=== PATIENT | male | born 1995 | race African-American/Black ===

== ENCOUNTER → 2016-06-25 | Outpatient (CLI) | payer OTHER ==
--- NOTE | 2016-06-25 13:23 | KCIC ---
Ultrasound abdomen complete Indication: Splenomegaly. No prior studies are available for comparison. The liver is normal in size at 13.4 centimeters. No discrete liver mass is detected. The gallbladder is without stones or sludge. No wall thickening or pericholecystic fluid is identified. No biliary ductal dilatation is seen. The pancreas, aorta and IVC are poorly visualized due to overlying bowel gas. The kidneys are unremarkable. No calculi or hydronephrosis is detected. The spleen is enlarged at 15.2 centimeters. No ascites is seen. Impression: Splenomegaly. No other significant abnormality is identified. Electronically signed by: Javier Ferreira MD (Jun 25, 2016 13:21:46)
== END | disposition home or self-care (01) ==
LOC: KCIC US 09:29
PROVIDERS: ATTEND Family Medicine
DX: R16.1 Splenomegaly, not elsewhere classified (principal)
CPT/HCPCS: 76700